=== PATIENT | female | born 1940 | race Caucasian/White ===

== ENCOUNTER → 2021-06-25 | Outpatient (CLI) | payer MEDICARE ==
[~2021-06-25] MED LIST: MEDROL DOSEPAK 24 MG PO; TESSALON PERLE100 MG PO; ZITHROMAX250 MG PO
== END ==
LOC: HEART 5 14:40
DX: R06.02 Shortness of breath (principal); I08.1 Rheumatic disorders of both mitral and tricuspid valves
CPT/HCPCS: 93306

== ENCOUNTER → 2021-09-11 | Outpatient (CLI) | payer MEDICARE | LOC: MAMO 11:30 → US 14:00 | DX: N64.4 Mastodynia (principal); N63.0 Unspecified lump in unspecified breast | CPT/HCPCS: 76641-LT; 77066; G0279 ==

== ENCOUNTER → 2022-04-24 | Outpatient (CLI) | payer MEDICARE | LOC: HEART 5 09:46 | DX: I47.1 Supraventricular tachycardia (principal); R53.83 Other fatigue; R07.89 Other chest pain; I11.9 Hypertensive heart disease without heart failure | CPT/HCPCS: 93306 ==

== ENCOUNTER → 2022-07-15 | Outpatient (CLI) | payer MEDICARE | LOC: HEART 5 07-02 14:30 | DX: I47.9 Paroxysmal tachycardia, unspecified (principal) ==